=== PATIENT | male | born 1990 | race Caucasian/White ===

== ENCOUNTER 2017-09-06 22:00 | Emergency (ER) | payer OTHER ==
[~2017-09-06] VITALS: Ht 180.3 cm; Wt 81.8 kg
[2017-09-06 22:13] VITALS: BP 135/81
== END 2017-09-06 22:58 | disposition home or self-care (01) ==
LOC: EMS 22:02
DX: L30.1 Dyshidrosis [pompholyx] (principal); F17.210 Nicotine dependence, cigarettes, uncomplicated; Z88.8 Allergy status to other drugs, medicaments and biological substances
CPT/HCPCS: 99283; 99406